=== PATIENT | female | born 1985 ===

== ENCOUNTER 2018-03-24 09:42 | Emergency (ER) | payer OTHER ==
[~2018-03-24] VITALS: Ht 160 cm; Wt 73.5 kg
[2018-03-24] MEDS ORDERED: SYNTHROID75 MCG (09:55)
[2018-03-24] MEDS ORDERED: KETO10TA2 PO (11:48)
[2018-03-24] MEDS ORDERED: CIPRO500 MG PO (11:48)
[2018-03-24] MEDS ORDERED: MUPIROCIN22 GM TOP (11:48)
== END 2018-03-24 13:06 | disposition home or self-care (01) ==
LOC: ER 09:42
DX: K62.89 Other specified diseases of anus and rectum (principal)